=== PATIENT | male | born 1955 | race Caucasian/White ===

== ENCOUNTER 2017-01-04 08:02 | Emergency (ER) | payer OTHER ==
[~2017-01-04] VITALS: Ht 175.3 cm; Wt 70.3 kg
[~2017-01-04 08:02] MED LIST: XANAX1 MG PO
--- NOTE | 2017-01-04 08:25 | ED UPPER/LOWER EXTREMITY COMPL ---
History of Present Illness General Chief Complaint: Hand or Wrist Injury Stated Complaint: L WRIST INJURY Source: patient Exam Limitations: no limitations Vital Signs & Intake/Output Vital Signs & Intake/Output Vital Signs Date Time Temp Pulse Resp B/P B/P Pulse O2 O2 Flow FiO2 Mean Ox Delivery Rate 01/04 0941 99.1 82 18 138/70 98 Room Air 01/04 0805 98.7 85 20 145/85 96 Room Air Allergies Coded Allergies: No Known Allergies (11/25/15) Reconcile Medications No Known Home Medications Triage Note: PT TO ED C/O LEFT WRIST/LEFT SHOULDER PAIN X 1 WEEK. STATES HE WAS CLEANING GUTTERS AND THE LADDER GAVE OUT, CAUSING PT TO FALL TO THE GROUND, DENIES HEAD STRIKE. THINKS HE HIT HIS LEFT WRIST ON A RUNG AND HIT LEFT SHOULDER ON THE GROUND. HAS BEEN TAKING MOTRIN WITH RELIEF, HAS BEEN ICING IT WITH RELIEF. +CMS, + PULSES. DECLINING MEDS IN TRIAGE. HAPPENED 1 WEEK AGO. Triage Nurses Notes Reviewed? yes Onset: Abrupt Duration: week(s): (1), constant, continues in ED Timing: recent history Severity: moderate, severe Pain/Injury Location: Left: Shoulder, Wrist. Method of Injury: fall No Modifying Factors: none HPI: 61-year-old male comes into emergency room for further evaluation of left shoulder pain and left wrist swelling. Patient reports that he fell off a ladder 1 week ago. Then on his left shoulder and left wrist. He reports the swelling has improved and his left wrist. Currently he denies any pain in this wrist. Some pain in his left shoulder and patient reports he cannot lift his shoulder up. Denies any head trauma. Denies any neck pain chest pain abdominal pain. Denies any other associated symptoms. (TRISTEN ALFORD) Past History Travel History Traveled to [place] past 21 day No Medical History Any Pertinent Medical History? see below for history Renal: 1 KIDNEY FROM Psychiatric: depression Surgical History Surgical History: non-contributory Psychosocial History What is your primary language Sami Tobacco Use: Current Daily Use Daily Tobacco Use Amount/Type: => 5 Cigarettes daily ETOH Use: denies use Illicit Drug Use: denies illicit drug use Family History Hx Contributory? No (TRISTEN ALFORD) Review of Systems Review of Systems Constitutional: Reports: no symptoms. EENTM: Reports: no symptoms. Respiratory: Reports: no symptoms. Cardiovascular: Reports: no symptoms. Gastrointestinal/Abdominal: Reports: no symptoms. Genitourinary: Reports: no symptoms. Musculoskeletal: Reports: see HPI. Skin: Reports: no symptoms. Neurological/Psychological: Reports: no symptoms. Hematologic/Endocrine: Reports: no symptoms. Immunological: Reports: no symptoms. All Other Systems: Reviewed and Negative (TRISTEN ALFORD) Physical Exam Physical Exam General Appearance: well developed/nourished, mild distress Head: atraumatic Eyes: Bilateral: normal appearance, EOMI. Ears, Nose, Throat: normal ENT inspection, hearing grossly normal Neck: normal inspection Cardiovascular/Respiratory: no respiratory distress Back: normal inspection Shoulder Left: soft tissue tenderness, limited range of motion Hand Left: swelling to left wrist/hand,no tenderness, radial pulse intact, limited range of motion, Neurologic/Tendon: normal sensation, normal motor functions, normal tendon functions, responds to pain, no evidence tendon injury, no pulse deficit Skin: intact, normal color, warm/dry Lymphatic: no anterior cervical nic (TRISTEN ALFORD) Progress Differential Diagnosis: compartment syndrome, contusion, dislocation, DVT, fracture, gout, septic arthritis, sprain, tendon injury Plan of Care: Orders Procedure Date/time Status XRY-WRIST COMPLETE-LEFT 01/04 825 Active XRY-SHOULDER COMPLETE-LEFT 01/04 825 Active XRY-HAND, 3 View LEFT 01/04 825 Active Diagnostic Imaging: Viewed by Me: Radiology Read. Discussed w/RAD: Radiology Read. Radiology Impression: SERVICE DATE: 01/04/17 EXAM TYPE: RAD - XRY-HAND, LEFT; XRY-SHOULDER COMPLETE-LEFT; XRY-WRIST COMPLETE-LEFT EXAMINATION: XR SHOULDER, LEFT XR WRIST, LEFT XR HAND, LEFT CLINICAL INFORMATION: Trauma. Fall. COMPARISON: None TECHNIQUE: Left shoulder, 3 views Left wrist, 4 views Left hand , 4 views FINDINGS: Left shoulder: Bones have normal alignment. Acromioclavicular and glenohumeral joints are normal. No focal soft tissue swelling. The visualized left upper lung is clear. Left wrist: Comminuted, intra -articular fracture of the distal radius with mild impaction and displacement of fracture fragments. There is 0.3 cm of acquired ulna positive variance. An intra -articular fracture line disrupts the radial articular surface between the scaphoid and lunate facets and there is intra-articular fracture involvement of the lunate facet, as well. The radial styloid fragment is laterally displaced by 2-3 mm. The posterior radial fragments are posteriorly displaced by 3 mm. There is approximately 15 degrees dorsal angulation of the radial articular surface. Soft tissue swelling is present within the distal forearm and wrist. Left hand: Carpal bones are intact. The carpal alignment is normal. The carpal joint spaces are maintained. There is mild osteophyte formation of the first carpometacarpal joint and at some of the interphalangeal joints. The metacarpals and phalanges are intact. IMPRESSION: 1. Normal left shoulder. 2. Acute, mildly displaced, impacted fracture of the distal radius with approximately 15 degrees dorsal angulation of the radial articular surface. DICTATED BY: JIM AVINA MD DATE /TIME DICTATED:01/04/17908 VESSEL SLAGMAN:INDIA DATE/TIME TRANSCRIBED: 01/04/17908 Comments: 01/04/2017 10:30:52 AM Patient clinically looks well. Refer to orthopedic doctor. Return if any other concerns. (CHRISTIE CASTELLANOS,TRISTEN) Departure Departure Disposition: HOME OR SELF CARE Condition: Stable Clinical Impression Primary Impression: Wrist fracture, closed Secondary Impressions: Injury of left rotator cuff Referrals: YADIRA HURTADO,BINA MARIEE MD,VALERY (PCP/Family) Additional Instructions: Take ibuprofen. Follow-up with orthopedic doctor. Return if any concerns worsening symptoms. Stay in splint until then. Do not let this point get wet. Please go over all results of today's visit with your primary care doctor. Contact your primary care doctor to let them know you were here in the emergency room. There may be nonspecific findings which may not be related to your visit today here in the emergency room but may require further evaluation and chronic monitoring by your primary care doctor. If you had a laceration today the chance of foreign body always remains. You should follow-up with your primary care doctor for recheck in 3-5 days for a wound check. If you had an x-ray done there is a chance that a fracture could have been missed on initial read and you should follow-up with your primary care doctor for repeat x-rays if symptoms persist. If your blood pressure was elevated here in the emergency room please have rechecked by her primary care doctor within the next 48 hours by your primary care doctor. If you were prescribed a narcotic here in the emergency room or any type of controlled substances you're not allowed to drive while taking this medication or operate any type of heavy machinery. Narcotics can make you feel lightheaded dizziness nausea and can cause constipation. You may need to order picker a stool softener. Thank you for choosing [facility] emergency room. Please return to the emergency room immediately if you have any other concerns worsening of symptoms. Departure Forms: Customer Survey General Discharge Information Prescriptions: Current Visit Scripts No Known Home Medications (TRISTEN ALFORD) PA/COMMERCIAL OR INSTITUTIONAL CLEANER Co-Sign Statement Statement: ED Attending supervision documentation- x I saw and evaluated the patient. I have also reviewed all the pertinent lab results and diagnostic results. I agree with the findings and the plan of care as documented in the PA's/COMMERCIAL OR INSTITUTIONAL CLEANER's documentation. [] I have reviewed the ED Record and agree with the PA's/COMMERCIAL OR INSTITUTIONAL CLEANER's documentation. [] Additions or exceptions (if any) to the PAs/COMMERCIAL OR INSTITUTIONAL CLEANER's note and plan are summarized below: [] (BRITTA HURTADO,VINNY) Procedures Splinting Location: left wrist Pre-Made Type: shoulder immobilizer left shoulder Hand-Made Type: orthoglass Splint: sugar-tong Splint Applied By: splint applied by me Pre-Proc Neuro Vasc Exam: normal Post-Proc Neuro Vasc Exam: normal (TRISTEN ALFORD)
--- NOTE | 2017-01-04 09:21 | RADIOLOGY REPORT ---
EXAMINATION: XR SHOULDER, LEFT XR WRIST, LEFT XR HAND, LEFT CLINICAL INFORMATION: Trauma. Fall. COMPARISON: None TECHNIQUE: Left shoulder, 3 views Left wrist, 4 views Left hand, 4 views FINDINGS: Left shoulder: Bones have normal alignment. Acromioclavicular and glenohumeral joints are normal. No focal soft tissue swelling. The visualized left upper lung is clear. Left wrist: Comminuted, intra-articular fracture of the distal radius with mild impaction and displacement of fracture fragments. There is 0.3 cm of acquired ulna positive variance. An intra-articular fracture line disrupts the radial articular surface between the scaphoid and lunate facets and there is intra-articular fracture involvement of the lunate facet, as well. The radial styloid fragment is laterally displaced by 2-3 mm. The posterior radial fragments are posteriorly displaced by 3 mm. There is approximately 15 degrees dorsal angulation of the radial articular surface. Soft tissue swelling is present within the distal forearm and wrist. Left hand: Carpal bones are intact. The carpal alignment is normal. The carpal joint spaces are maintained. There is mild osteophyte formation of the first carpometacarpal joint and at some of the interphalangeal joints. The metacarpals and phalanges are intact. IMPRESSION: 1. Normal left shoulder. 2. Acute, mildly displaced, impacted fracture of the distal radius with approximately 15 degrees dorsal angulation of the radial articular surface.
[2017-01-04 09:41] VITALS: BP 138/70
== END 2017-01-04 09:41 ==
LOC: ERH 08:02
DX: S52.502A Unspecified fracture of the lower end of left radius, initial encounter for closed fracture (principal); S46.002A Unspecified injury of muscle(s) and tendon(s) of the rotator cuff of left shoulder, initial encounter; W11.XXXA Fall on and from ladder, initial encounter
CPT/HCPCS: 73030-LT; 73110-LT; 73130-LT